=== PATIENT | female | born 1950 | race Caucasian/White ===

== ENCOUNTER 2017-07-21 11:56 | Emergency (ER) | payer BC, OTHER ==
--- NOTE | 2017-07-21 12:36 | ED Physician Documentation ---
PD HPI TRUNK INJURY - Stated complaint Stated Complaint: RIB PAIN, FALL - Chief complaint Chief Complaint: Trauma Ch/Bk - History obtained from History obtained from: Patient - History of Present Illness Location: Right chest. No: Right abdomen Type of injury: Fall (slipped and fell, striking right lateral ribs on a log. Pain locally since and unable to have deep breaths without pain still.) Timing - onset: How many days ago (2) Timing - duration: Days (2) Timing - details: Abrupt onset, Still present Quality: Pain, Spasm, Sharp, Other Improved by: No: Rest Worsened by: Moving, Palpating Associated symtptoms: No: Weakness, Numbness, Tingling, Swelling Contributing factors: No: Anticoagulated, Other injury Where injury occured: Home Recently seen: Not recently seen Review of Systems Constitutional: denies: Fever, Chills Nose: reports: Rhinorrhea / runny nose, Congestion Throat: denies: Sore throat Cardiac: reports: Chest pain / pressure. denies: Palpitations Respiratory: reports: Cough. 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 Cardiovascular: Angioplasty, Other Derm: Skin cancer surgery - Present Medications Home Medications: Ambulatory Orders Medication Instructions Recorded Confirmed Insulin Glargine,Hum.rec.anlog 90 units SQ DAILY 07/17/13 03/28/16 [Lantus] Losartan [Cozaar] 50 mg PO ONCE 07/17/13 03/28/16 hydroCHLOROthiazide 50 mg PO DAILY 07/17/13 03/28/16 [Hydrochlorothiazide] Aspirin [Adult Low Dose Aspirin EC] 81 mg PO DAILY 03/28/16 03/28/16 Atorvastatin [Lipitor] 40 mg PO DAILY 03/28/16 03/28/16 Carvedilol 25 mg PO DAILY 03/28/16 03/28/16 Benzonatate [Tessalon] 100 mg PO TID PRN #25 capsule 07/21/17 Cholecalciferol [Vitamin D3] 1 cap PO DAILY 07/21/17 07/21/17 Dexamethasone [Decadron] 4 mg PO DAILY #5 tablet 07/21/17 HYDROcod/ACETAM 5/325 [[place] 5/325] 1 tab PO Q6H PRN #20 tablet 07/21/17 Metformin HCl [Fortamet] 1 tab PO BID 07/21/17 07/21/17 Methocarbamol [Robaxin] 500 mg PO Q6H PRN #25 tablet 07/21/17 - Allergies Allergies/Adverse Reactions: Allergies Allergy/AdvReac Type Severity Reaction Status Date / Time No Known Drug Allergies Allergy Verified 07/21/17 12:04 - Social History Does the pt smoke?: No Smoking Status: Never smoker Does the pt drink ETOH?: No Does the pt have substance abuse?: No - Immunizations Immunizations are current?: Yes - POLST Patient has POLST: No PD ED PE NORMAL - Vitals Vital signs reviewed: Yes - General General: Alert and oriented X 3, No acute distress, Well developed/nourished - HEENT HEENT: Atraumatic - Neck Neck: Supple, no meningeal sign, No adenopathy - Cardiac Cardiac: RRR, No murmur - Respiratory Respiratory: Clear bilaterally, Other - Abdomen Abdomen: Soft, Non tender - Female Female : Deferred - Rectal Rectal: Deferred - Back Back: No CVA TTP, No spinal TTP - Derm Derm: Normal color, Warm and dry - Extremities Extremities: No deformity, No tenderness to palpate, Normal ROM s pain - Neuro Neuro: Alert and oriented X 3, orthodontic laboratory technician 2-12 intact, No motor deficit, No sensory deficit, Normal speech Eye Opening: Spontaneous Motor: Obeys Commands Verbal: Oriented GCS Score: 15 - Psych Psych: Normal mood Results - Vitals Vitals: Oxygen O2 Source Room air - Rads (name of study) right ribs with chest Radiology: Prelim report reviewed (no acute process. ) PD MEDICAL DECISION MAKING - ED course Complexity details: reviewed results, considered differential, d/w patient Departure - Departure Disposition: 01 Home, Self Care Clinical Impression: Contusion of chest wall Qualifiers: Encounter type: initial encounter Laterality: right Qualified Code(s): S20.211A - Contusion of right front wall of thorax, initial encounter Fall from slipping on ice Qualifiers: Encounter type: initial encounter Qualified Code(s): W00.9XXA - Unspecified fall due to ice and snow, initial encounter Upper respiratory infection Qualifiers: URI type: unspecified URI Qualified Code(s): J06.9 - Acute upper respiratory infection, unspecified Condition: Stable Record reviewed to determine appropriate education?: Yes Instructions: ED Upper Resp Infec No Abx Tx, ED Contusion Chest Wall Follow-Up: PABLO BURTON DO [Primary Care Provider] - Prescriptions: Benzonatate [Tessalon] 100 mg PO TID PRN #25 capsule PRN Reason: Cough Dexamethasone [Decadron] 4 mg PO DAILY #5 tablet HYDROcod/ACETAM 5/325 [[place] 5/325] 1 tab PO Q6H PRN #20 tablet PRN Reason: Pain Methocarbamol [Robaxin] 500 mg PO Q6H PRN #25 tablet PRN Reason: Spasms Comments: Activity as feeling able. To help with coughing, use Tessalon if needed for cough and Decadron daily for 5 days and see if that helps. For the chest wall pain from the fall, use ibuprofen to 3 times a day and add Tylenol or hydrocodone if needed. There may be some muscle spasming as well so methocarbamol for spasms. This should taper down and improve over the next several days to week. Follow-up with your primary care if not improving. Discharge Date/Time: 07/21/17 14:47
[2017-07-21] MEDS ORDERED: oxyCOD/ACETAMIN 5 MG/325 MG TABLET PO STA (12:49)
[2017-07-21] MEDS ORDERED: KETOROLAC 60 MG/2 ML VIAL IM STA (12:50)
[2017-07-21] MEDS ORDERED: DEXAMETHASONE 10 MG/ML VIAL PO STA (12:50)
--- NOTE | 2017-07-21 14:11 | XRAY Report ---
EXAM: RIGHT RIB RADIOGRAPHY EXAM DATE: 07/21/2017 02:02 PM. CLINICAL HISTORY: Fall to right ribs 2 days ago. Pain. COMPARISON: 1 view chest radiography 07/17/2013. TECHNIQUE: 1 view of the chest and 2 views of the ribs. FINDINGS: Bones: No fracture. Lungs: No focal consolidation. No pneumothorax. No pleural effusions. Mediastinum: Heart and mediastinal contours are unremarkable. Other: None. IMPRESSION: No radiographically apparent acute abnormality in the chest. [facility] Referring Provider Line: [phone] SITE ID: [id number]
[2017-07-21 14:46] VITALS: BP 140/67
== END 2017-07-21 14:47 | disposition home or self-care (01) ==
LOC: ED 11:56
DX: S20.211A Contusion of right front wall of thorax, initial encounter (principal); W00.0XXA Fall on same level due to ice and snow, initial encounter; Y92.009 Unspecified place in unspecified non-institutional (private) residence as the place of occurrence of the external cause; J06.9 Acute upper respiratory infection, unspecified; I10 Essential (primary) hypertension; E11.9 Type 2 diabetes mellitus without complications; Z79.4 Long term (current) use of insulin; K21.9 Gastro-esophageal reflux disease without esophagitis; I25.2 Old myocardial infarction; Z79.82 Long term (current) use of aspirin
CPT/HCPCS: 71101; 96372; 99283; A9270

== ENCOUNTER 2018-07-12 07:26 | Outpatient (CLI) | payer MEDICARE, OTHER ==
--- NOTE | 2018-07-12 13:49 | MRI Report ---
Reason: RADICULOPATHY,LUMBAR REGION Procedure Date: 07/12/2018 Accession Number: [id number] / [id number] Procedure: MRI - Lumbar Spine W/O CPT Code: FULL RESULT: MRI LUMBAR SPINE WITHOUT CONTRAST INDICATION: 67-year-old female with low back pain and right leg pain. TECHNIQUE: 1. Sagittal STIR, T1 and T2. 2. Axial T1 and T2 COMPARISON: None. FINDINGS: There appear to be 5 nonrib-bearing, lumbar type vertebrae. There is minimal retrolisthesis of L1 on L2 and L3 on L4. Alignment is otherwise unremarkable. There is absence of normal T2 signal from the disks at T11-T12, L4-L5 and L5-S1, confirming disk degeneration. The T12-L1 through L3-L4 disks appear relatively well hydrated. There is mild disk space narrowing at T11-T12, L3-L4 and L4-L5 with moderate to severe narrowing at L5-S1. Type II reactive marrow changes are identified in the vertebral endplates at L5-S1. Minor type I reactive marrow change is identified in the vertebral endplates at T11-T12 anteriorly. A few intraosseous hemangiomata are demonstrated. The marrow signal intensity is otherwise unremarkable. The conus terminates in appropriate fashion above the L1-L2 disk level. There is no abnormal thickening or lipomatous change of the filum. Axial images: T12-L1: Minimal disk bulge. No spinal canal or foraminal stenosis. L1-L2: Disk bulge. No spinal canal or foraminal stenosis. L2-L3: Very small intra/extraforaminal protrusions or extrusions are demonstrated bilaterally. No spinal canal or foraminal stenosis. L3-L4: Minor disk bulge with associated intraforaminal disk displacement. In addition, there is a small left intraforaminal protrusion. Suspect early degenerative facet arthrosis. No significant bony hypertrophy. Mild redundancy of the ligamenta flava. No spinal stenosis. Mild left foraminal stenosis. L4-L5: Circumferential disk bulge with associated minor intraforaminal disk displacement. In addition, there is a tiny posterocentral protrusion and a small right posterolateral protrusion. Mild redundancy of the ligamenta flava. Minimal mass effect on the ventral aspect of the thecal sac. No spinal stenosis. Mild foraminal narrowing. L5-S1: Circumferential disk bulge. Small central/left paracentral extrusion projecting posteriorly into the spinal canal for roughly 4.5 mm. Broad-based, intra/extraforaminal extrusions bilaterally. Degenerative facet arthrosis with associated moderate bony hypertrophy. Mild redundancy of the ligamenta flava. No spinal stenosis. Mild foraminal narrowing. The L5 nerve roots exit non-compressed. A mild to moderate amount of fatty atrophy is identified in the posterior paraspinal musculature. Incidentally noted is a roughly 3.35 cm rounded, T2 hyperintense/T1 hypointense mass arising from the anteromedial cortex of mid pole right kidney, consistent with a benign cortical cyst. The regional paraspinous soft tissues are otherwise unremarkable. IMPRESSION: 1. Degenerative disk and facet changes are demonstrated at multiple levels in the lumbar spine as described. 2. There is no significant associated spinal canal or foraminal stenosis. No evidence of neural impingement.
== END 2018-07-12 07:27 | disposition home or self-care (01) ==
LOC: DI 07:26
PROVIDERS: ATTEND Family Medicine
DX: M51.16 Intervertebral disc disorders with radiculopathy, lumbar region (principal); M51.17 Intervertebral disc disorders with radiculopathy, lumbosacral region; M47.9 Spondylosis, unspecified
CPT/HCPCS: 72148

== ENCOUNTER 2020-03-24 16:40 | Outpatient (CLI) | payer MEDICARE, OTHER ==
--- NOTE | 2020-03-24 17:11 | XRAY Report ---
PROCEDURE: Foot 3 View RT INDICATIONS: ACUTE PAIN AT THE HEAL AND BALL TECHNIQUE: 3 views of the foot were acquired. COMPARISON: None FINDINGS: Bones: Osteoarthritic changes are noted throughout right foot more prominent involving the TMT joints and first MTP joint. No fractures or dislocations. Well-defined plantar and dorsal calcaneal enthes ophytes are seen. Osteoarthritic changes also noted involving articulation between sesamoids and firs t metatarsal head. No suspicious bony lesions. Soft tissues: No tibiotalar joint effusion. Achilles tendon appears normal. IMPRESSION: Right foot osteoarthritic changes as above. No gross acute fracture or dislocation. Reviewed by: Enrique Ling MD on 03/24/2020 5:09 PM PDT Approved by: Enrique Ling MD on 03/24/2020 5:09 PM PDT Station ID: [id number]
== END 2020-03-24 16:41 | disposition home or self-care (01) ==
LOC: DI 16:40
PROVIDERS: ATTEND Family Medicine
DX: M19.071 Primary osteoarthritis, right ankle and foot (principal)

== ENCOUNTER 2021-01-19 09:08 | Outpatient (CLI) | payer MEDICARE, OTHER ==
--- NOTE | 2021-01-20 13:27 | Mammography Report ---
BILATERAL DIGITAL SCREENING MAMMOGRAM 3D/2D: 01/19/2021 CLINICAL: Routine screening. Comparison is made to exams dated: 02/04/2015 mammogram, 09/05/2007 mammogram, 07/19/2002 mammogram, an d 02/12/2001 mammogram - [facility]. The tissue of both breasts is predominantly fa tty. There is a cluster of fine calcifications in the right breast middle depth lateral region seen on the craniocaudal view only. This is increased in number. There is a new cluster of fine calcifications in the left breast middle depth medial region seen on t he craniocaudal view only. No other significant masses or calcifications are seen in either breast. IMPRESSION: INCOMPLETE: NEEDS ADDITIONAL IMAGING EVALUATION The cluster of fine calcifications in the right breast middle depth lateral region seen on the cranio caudal view only is indeterminate. Lateral magnification and magnification views are recommended. The new cluster of fine calcifications in the left breast middle depth medial region seen on the cran iocaudal view only is indeterminate. Magnification views are recommended. This exam was interpreted at Station ID: [id number]. NOTE: For mammograms, a report in lay terms will be sent to the patient. Approximately 15% of breast malignancies will not be visualized mammographically. In the management of a palpable breast mass, a negative mammogram must not discourage biopsy of a clinically suspicious lesion. Electronically Signed By: Luther Sandra M.D., jr/lauren:01/19/2021 10:12:12 ACR BI-RADS Category 0: Incomplete 3340F PARENCHYMAL PATTERN: (F) - The breast(s) demonstrate(s) diffuse fatty replacement. BI-RADS CATEGORY: (0) - 0 RECOMMENDATION: (ADDMAM) - Recommend additional mammographic views. [id number] Immediate follow-up LATERALITY: (B)
== END 2021-01-19 09:09 | disposition home or self-care (01) ==
LOC: DI 09:08
DX: Z12.31 Encounter for screening mammogram for malignant neoplasm of breast (principal); R92.1 Mammographic calcification found on diagnostic imaging of breast

== ENCOUNTER 2021-02-11 07:48 | Outpatient (CLI) | payer MEDICARE, OTHER ==
--- NOTE | 2021-02-14 10:20 | Mammography Report ---
BILATERAL DIGITAL DIAGNOSTIC MAMMOGRAM 3D/2D: 02/11/2021 CLINICAL: Patient returns for magnification views of microcalcifications in both breasts. Comparison is made to exams dated: 01/19/2021 mammogram, 02/04/2015 mammogram, 09/05/2007 mammogram, mammogram, and 02/12/2001 mammogram - [facility]. The tissue of both breast s is predominantly fatty. There are grouped fine calcifications in the right breast middle depth central to the nipple seen on the craniocaudal view only. There are grouped fine calcifications in the left breast middle depth medial region seen on the crani ocaudal view only. No other significant masses or calcifications are seen in either breast. IMPRESSION: PROBABLY BENIGN The grouped fine calcifications in the right breast middle depth central to the nipple seen on the cr aniocaudal view only are probably benign. A follow-up mammogram in 6 months is recommended. The grouped fine calcifications in the left breast middle depth medial region seen on the craniocauda l view only are probably benign. A follow-up mammogram in 6 months is recommended. A follow-up mammogram in 6 months is recommended to demonstrate stability. This exam was interpreted at Station ID: [id number]. NOTE: For mammograms, a report in lay terms will be sent to the patient. Approximately 15% of breast malignancies will not be visualized mammographically. In the management of a palpable breast mass, a negative mammogram must not discourage biopsy of a clinically suspicious lesion. Electronically Signed By: Luther Sandra M.D., jr/lauren:02/11/2021 08:43:30 ACR BI-RADS Category 3: Probably benign 3343F PARENCHYMAL PATTERN: (F) - The breast(s) demonstrate(s) diffuse fatty replacement. BI-RADS CATEGORY: (3) - 3 Mammogram [id number] 6 month follow-up LATERALITY: (B)
== END 2021-02-11 07:49 | disposition home or self-care (01) ==
LOC: DI 07:48
PROVIDERS: ATTEND Family Medicine
DX: R92.1 Mammographic calcification found on diagnostic imaging of breast (principal)

== ENCOUNTER 2021-04-19 07:14 | Outpatient (CLI) | payer MEDICARE, OTHER ==
--- NOTE | 2021-04-19 08:45 | MRI Report ---
PROCEDURE: Lumbar Spine W/O INDICATIONS: LUMBAR RADICULOPATHY TECHNIQUE: Noncontrast sagittal T1 spin echo and T2 fast echo, sagittal STIR, axial T1 and T2 fast spin echo thr ough the lumbar spine. Axial and oblique coronal T1 spin echo and STIR through the sacrum. In cases with scoliosis, additional coronal T2 fast spin echo may be performed. COMPARISON: None. FINDINGS: Alignment and Curvature: There is normal bony alignment. Bone Marrow: Multilevel endplate degenerative sclerosis and spurring. Diffuse facet arthropathy. No evidence of acute fracture. Severe L5-S1 disc height loss. Spinal Cord: Conus medullaris terminates at the L1 level. Visualized cord demonstrates normal signa l and size. Paraspinous Soft Tissues: No paravertebral masses. Presumed T2 hyperintense right renal cyst, techn ically nonspecific. Posterior dependent subcutaneous soft tissue edema seen at the level of L2-L4 T12-L1: Normal in appearance. L1-L2: Normal in appearance. L2-L3: Normal in appearance. L3-L4: No canal or definite lateral recess narrowing. Minimal bilateral foraminal narrowing. L4-L5: Mild canal narrowing. Partial effacement of the left and right lateral recesses with symmetr ic appearance. Mild bilateral foraminal stenoses. L5-S1: No high-grade canal narrowing. Partial effacement of the left and right lateral recesses wit h symmetric appearance. Moderate right foraminal stenosis, with questionable nerve root compression i n the cephalocaudad dimension. There is also moderate left foraminal stenosis also demonstrating poss ible slight nerve root compression in the cephalocaudad dimension. Sacrum: Visualized sacral plexus appears normal. IMPRESSION: Multilevel midlower lumbar spondylosis and facet disease as above. Moderate bilateral foraminal stenoses at L5-S1. Reviewed by: Leno Bee MD on 04/19/2021 8:44 AM PST Approved by: Leno Bee MD on 04/19/2021 8:44 AM PST Station ID: [id number]
== END 2021-04-19 07:15 | disposition home or self-care (01) ==
LOC: DI 07:14
PROVIDERS: ATTEND Family Medicine
DX: M47.816 Spondylosis without myelopathy or radiculopathy, lumbar region (principal); M47.817 Spondylosis without myelopathy or radiculopathy, lumbosacral region; M48.061 Spinal stenosis, lumbar region without neurogenic claudication; M48.07 Spinal stenosis, lumbosacral region

== ENCOUNTER 2021-06-06 11:42 | Emergency (ER) | payer MEDICARE, OTHER ==
[2021-06-06 13:23] LABS: BASOPHILS % (AUTO) 0.3 %; EOSINOPHILS % (AUTO) 2.8 %; HCT - HEMATOCRIT 39.6 % (37.0-47.0); HGB - HEMOGLOBIN 13.4 g/dL (12.0-16.0); LYMPHOCYTES % (AUTO) 33.6 %; MEAN CORPUSCULAR HEMOGLOBIN 29.6 pg (27.0-31.0); MEAN CORPUSCULAR HGB CONC 33.8 g/dL (32.0-36.0); MEAN CORPUSCULAR VOLUME 87.6 fL (81.0-99.0); MEAN PLATELET VOLUME 10.9 fL (7.9-10.8); MONOCYTES % (AUTO) 8.8 %; NEUTROPHILS % (AUTO) 54.2 %; PLT - PLATELET COUNT 183 10^3/uL (130-450); RED BLOOD COUNT 4.52 10^6/uL (4.20-5.40); RED CELL DISTRIBUTION WIDTH 12.6 % (12.0-15.0); WHITE BLOOD COUNT 5.8 x10^3/uL (4.8-10.8)
[2021-06-06 13:24] LABS: SLIDE REVIEW? Indicated
[2021-06-06 13:25] LABS: ABNORMAL LYMPHS % (MANUAL) 0 %
[2021-06-06 13:40] LABS: ALBUMIN 3.8 g/dL (3.2-5.5); BILIRUBIN,TOTAL 0.6 mg/dL (0.2-1.0); CALCIUM 9.2 mg/dL (8.5-10.3); CREATININE 1.1 mg/dL (0.4-1.0); POTASSIUM 4.1 mmol/L (3.5-5.0); TOTAL PROTEIN 7.7 g/dL (6.7-8.2)
[2021-06-06] MEDS ORDERED: SODIUM CHLORIDE 0.9% 1,000 ML IV STA ×2 (14:02→15:56)
[2021-06-06] MEDS ORDERED: cefTRIAXone 1 GM in SODIUM CHLORIDE 0.9% MINIBAG 100 ML IV STA (14:02)
--- NOTE | 2021-06-06 14:04 | ED Physician Documentation ---
PD HPI NVD - Stated complaint Stated Complaint: N/V/D WEAKNESS - Chief complaint Chief Complaint: Abd Pain - History obtained from History obtained from: Patient - History of Present Illness Timing - onset: How many days ago (3) Timing - duration: Days (3) Timing - details: Gradual onset, Still present Associated symptoms: Dizzy, Near syncope / syncope, Loss of appetite. No: Fever Contributing factors: Other (has uri with cough, foul taste in mouth and ear pressure) Improved by: Vomiting, BM Similar symptoms before: Diagnosis (dehydration) Recently seen: Not recently seen - Additonal information Additional information: Previously well 70-year-old female who is on insulin for diabetes has developed nausea vomiting diarrhea resulting in dizziness and lightheadedness. She feels weak. She also is having a cough productive of scant phlegm and a foul taste in her mouth as well as fullness to both ears. Review of Systems Constitutional: reports: Myalgias, Fatigue. denies: Fever Eyes: denies: Decreased vision Ears: reports: Ear pain Nose: reports: Rhinorrhea / runny nose, Congestion Throat: denies: Sore throat Cardiac: denies: Chest pain / pressure, Palpitations Respiratory: reports: Dyspnea, Cough GI: reports: Nausea, Vomiting, Diarrhea : denies: Dysuria, Frequency Skin: denies: Rash Musculoskeletal: denies: Neck pain, Back pain, Extremity pain PD PAST MEDICAL HISTORY - Past Medical History Cardiovascular: Hypertension, High cholesterol, [place] Respiratory: None Endocrine/Autoimmune: Type 2 diabetes GI: GERD : None Psych: None Musculoskeletal: None, Osteoarthritis Derm: None - Past Surgical History Past Surgical History: Yes General: Appendectomy Ortho: Carpal Tunnel surgery /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 Cardiovascular: Angioplasty, Other Derm: Skin cancer surgery - Present Medications Home Medications: Ambulatory Orders Medication Instructions Recorded Confirmed Insulin Glargine,Hum.rec.anlog 90 units SQ DAILY 07/17/13 03/28/16 [Lantus] Losartan [Cozaar] 50 mg PO ONCE 07/17/13 03/28/16 hydroCHLOROthiazide 50 mg PO DAILY 07/17/13 03/28/16 [Hydrochlorothiazide] Aspirin [Adult Low Dose Aspirin EC] 81 mg PO DAILY 03/28/16 03/28/16 Atorvastatin [Lipitor] 40 mg PO DAILY 03/28/16 03/28/16 Carvedilol 25 mg PO DAILY 03/28/16 03/28/16 Benzonatate [Tessalon] 100 mg PO TID PRN #25 capsule 07/21/17 Cholecalciferol [Vitamin D3] 1 cap PO DAILY 07/21/17 07/21/17 HYDROcod/ACETAM 5/325 [[place] 5/325] 1 tab PO Q6H PRN #20 tablet 07/21/17 Metformin HCl [Fortamet] 1 tab PO BID 07/21/17 07/21/17 dexAMETHasone [Decadron] 4 mg PO DAILY #5 tablet 07/21/17 methocarbamoL [Robaxin] 500 mg PO Q6H PRN #25 tablet 07/21/17 Amox/Clav 875/125 [Augmentin] 1 each PO Q12H #20 tablet 06/06/21 - Allergies Allergies/Adverse Reactions: Allergies Allergy/AdvReac Type Severity Reaction Status Date / Time No Known Drug Allergies Allergy Verified 06/06/21 12:34 - Social History Does the pt smoke?: No Smoking Status: Never smoker Does the pt drink ETOH?: No Does the pt have substance abuse?: No - Immunizations Immunizations are current?: Yes - POLST Patient has POLST: No PD ED PE NORMAL - Vitals Vital signs reviewed: Yes (Hypertensive with wide pulse pressure) - General General: Alert and oriented X 3, No acute distress, Well developed/nourished - HEENT HEENT: Atraumatic, PERRL, EOMI, Other (Both TMs are inflamed the right is worse than the left there is cerumen to the right this is removed for examination.) - Neck Neck: Supple, no meningeal sign, No bony TTP - Cardiac Cardiac: RRR, No murmur - Respiratory Respiratory: No respiratory distress, Clear bilaterally - Abdomen Abdomen: Soft, Non tender - Back Back: No CVA TTP, No spinal TTP - Derm Derm: Normal color, Warm and dry, No rash - Extremities Extremities: No deformity, No edema - Neuro Neuro: Alert and oriented X 3, compliance advisor 2-12 intact, No motor deficit, No sensory deficit, Normal speech Eye Opening: Spontaneous Motor: Obeys Commands Verbal: Oriented GCS Score: 15 - Psych Psych: Normal mood, Normal affect Results - Vitals Vitals: Vital Signs - 24 hr 06/06/21 06/06/21 06/06/21 12:29 13:42 15:00 Temperature 37.1 C Heart Rate 84 78 80 Respiratory 18 16 16 Rate Blood Pressure 161/63 H 180/66 H 139/62 H O2 Saturation 97 98 95 06/06/21 17:00 Temperature Heart Rate 78 Respiratory 16 Rate Blood Pressure 150/67 H O2 Saturation 96 Oxygen O2 Source Room air - Labs Labs: Laboratory Tests 06/06/21 06/06/21 06/06/21 13:19 13:19 13:40 WBC 5.8 RBC 4.52 Hgb 13.4 Hct 39.6 MCV 87.6 MCH 29.6 MCHC 33.8 RDW 12.6 Plt Count 183 MPV 10.9 H Neut # (Auto) Not Reportable Lymph # (Auto) Not Reportable Bay # (Auto) Not Reportable Eos # (Auto) Not Reportable Baso # (Auto) Not Reportable Absolute Nucleated RBC Not Reportable Total Counted 100 Band Neuts % (Manual) 5 Reactive Lymphs % (Man) 1 Abnorm Lymph % (Manual) 0 Nucleated RBC % Not Reportable Neutrophils # (Manual) 3.3 Lymphocytes # (Manual) 2.1 Monocytes # (Manual) 0.4 Eosinophils # (Manual) 0.0 Basophils # (Manual) 0.0 Differential Comment MANUAL DIFFERENTIAL Manual Slide Review Indicated WBC Morphology 2+ REACTIVE LYMPHS Sodium 132 L Potassium 4.1 Chloride 92 L Carbon Dioxide 27 Anion Gap 13.0 BUN 23 H Creatinine 1.1 H Estimated GFR (MDRD) 49 L Glucose 254 H POC Whole Bld Glucose Calcium 9.2 Total Bilirubin 0.6 AST 24 ALT 19 Alkaline Phosphatase 55 Total Protein 7.7 Albumin 3.8 Globulin 3.9 Albumin/Globulin Ratio 1.0 Lipase 21 L Urine Color Cancelled Urine Clarity Cancelled Urine pH Cancelled Ur Specific [place] Cancelled Urine Protein Cancelled Urine Glucose (UA) Cancelled Urine Ketones Cancelled Urine Occult Blood Cancelled Urine Nitrite Cancelled Urine Bilirubin Cancelled Urine Urobilinogen Cancelled Ur Leukocyte Esterase Cancelled Ur Microscopic Review Cancelled Urine Culture Comments Cancelled 06/06/21 06/06/21 13:40 16:38 WBC RBC Hgb Hct MCV MCH MCHC RDW Plt Count MPV Neut # (Auto) Lymph # (Auto) Bay # (Auto) Eos # (Auto) Baso # (Auto) Absolute Nucleated RBC Total Counted Band Neuts % (Manual) Reactive Lymphs % (Man) Abnorm Lymph % (Manual) Nucleated RBC % Neutrophils # (Manual) Lymphocytes # (Manual) Monocytes # (Manual) Eosinophils # (Manual) Basophils # (Manual) Differential Comment Manual Slide Review WBC Morphology Sodium Potassium Chloride Carbon Dioxide Anion Gap BUN Creatinine Estimated GFR (MDRD) Glucose POC Whole Bld Glucose 252 H 152 H Calcium Total Bilirubin AST ALT Alkaline Phosphatase Total Protein Albumin Globulin Albumin/Globulin Ratio Lipase Urine Color Urine Clarity Urine pH Ur Specific [place] Urine Protein Urine Glucose (UA) Urine Ketones Urine Occult Blood Urine Nitrite Urine Bilirubin Urine Urobilinogen Ur Leukocyte Esterase Ur Microscopic Review Urine Culture Comments Procedures - IVC sono (time) 1355 Bedside IVC sono: IVC measures (cm) (0.71), IVC collapsed c insp (cm) (complete), Dehydration (est 2-3 liter deficit) PD MEDICAL DECISION MAKING - ED course Complexity details: reviewed old records, reviewed results, re-evaluated patient, considered differential, d/w patient ED course: 70-year-old diabetic female with nausea vomiting and is dehydrated she is taking insulin as elevated blood sugar and has been vomiting. She is administered intravenous saline she has otitis on examination she is administered Rocephin as well. Departure - Departure Disposition: 01 Home, Self Care Clinical Impression: Dehydration Otitis media Qualifiers: Otitis media type: suppurative Chronicity: acute Laterality: bilateral Recurrence: not specified as recurrent Spontaneous tympanic membrane rupture: without spontaneous rupture Qualified Code(s): H66.003 - Acute suppurative otitis media without spontaneous rupture of ear drum, bilateral Condition: Stable Instructions: ED Dehydration, ED Otitis Media Acute Adult Follow-Up: PABLO BURTON DO [Primary Care Provider] - Prescriptions: Amox/Clav 875/125 [Augmentin] 1 each PO Q12H #20 tablet
[2021-06-06 14:14] LABS: BAND NEUTROPHILS % (MANUAL) 5 %; LYMPHOCYTES # (MANUAL) 2.1 10^3/uL (1.5-3.5); LYMPHOCYTES % (MANUAL) 35 %; MONOCYTES # (MANUAL) 0.4 10^3/uL (0.0-1.0); NEUTROPHILS # (MANUAL) 3.3 10^3/uL (1.5-6.6); REACTIVE LYMPHS % (MANUAL) 1 %
[2021-06-06 14:15] LABS: DIFFERENTIAL COMMENT MANUAL DIFFERENTIAL
[2021-06-06 14:16] LABS: WBC MORPHOLOGY (MULTIPLE) 2+ REACTIVE LYMPHS (NORMAL)
[2021-06-06 17:07] VITALS: BP 150/67
== END 2021-06-06 17:37 | disposition home or self-care (01) ==
LOC: ED 11:42
DX: E86.0 Dehydration (principal); H66.003 Acute suppurative otitis media without spontaneous rupture of ear drum, bilateral; H61.21 Impacted cerumen, right ear; E11.65 Type 2 diabetes mellitus with hyperglycemia; Z79.4 Long term (current) use of insulin; I10 Essential (primary) hypertension; Z79.82 Long term (current) use of aspirin
CPT/HCPCS: 36415; 80053; 81001; 81003; 83690; 85025; 87086; 96361; 96365; 99283

== ENCOUNTER 2021-06-09 12:23 | Emergency (ER) | payer MEDICARE, OTHER ==
[2021-06-09] MEDS ORDERED: SODIUM CHLORIDE 0.9% 1,000 ML IV STA (12:51)
[2021-06-09] MEDS ORDERED: ONDANSETRON 4 MG/2 ML VIAL IVP STA (12:51)
[2021-06-09 12:57] LABS: BASOPHILS % (AUTO) 0.2 %; EOSINOPHILS # (AUTO) 0.2 10^3/uL (0.0-0.7); EOSINOPHILS % (AUTO) 2.5 %; HCT - HEMATOCRIT 39.2 % (37.0-47.0); HGB - HEMOGLOBIN 13.3 g/dL (12.0-16.0); LYMPHOCYTES % (AUTO) 32.9 %; MEAN CORPUSCULAR HEMOGLOBIN 29.2 pg (27.0-31.0); MEAN CORPUSCULAR HGB CONC 33.9 g/dL (32.0-36.0); MEAN CORPUSCULAR VOLUME 86.2 fL (81.0-99.0); MEAN PLATELET VOLUME 11.1 fL (7.9-10.8); MONOCYTES # (AUTO) 0.4 10^3/uL (0.0-1.0); MONOCYTES % (AUTO) 6.9 %; NEUTROPHILS # (AUTO) 3.5 10^3/uL (1.5-6.6); NEUTROPHILS % (AUTO) 57.2 %; PLT - PLATELET COUNT 245 10^3/uL (130-450); RED BLOOD COUNT 4.55 10^6/uL (4.20-5.40); RED CELL DISTRIBUTION WIDTH 12.5 % (12.0-15.0); WHITE BLOOD COUNT 6.1 x10^3/uL (4.8-10.8)
--- NOTE | 2021-06-09 13:01 | ED Physician Documentation ---
History of Present Illness - Stated complaint Stated Complaint: NAUSEA AND WEAK - Chief complaint Chief Complaint: General - Additonal information Additional information: 70-year-old female return to the emergency department for evaluation of fatigue, persistent feeling of unwell nausea and vomiting. Seen 3 days ago for similar found to be dehydrated and repleted with fluids. Also found to have acute otitis media and was started on Augmentin. Despite this she generally is having persistent nausea and vomiting. She is denying any diarrhea, dysuria urgency or frequency. She has not had any fevers. No cough or congestion. She is denying chest pain or shortness of air. Past medical history is most significant for insulin-dependent diabetes mellitus as well as a history of hypertension and coronary artery disease status post s tenting in 2006. Doubly vaccinated for COVID-19 though not boosted. Denies sick contacts. Review of Systems Constitutional: reports: Fatigue. denies: Fever, Chills Eyes: reports: Reviewed and negative Ears: reports: Reviewed and negative Nose: reports: Reviewed and negative Throat: reports: Reviewed and negative Cardiac: denies: Chest pain / pressure, Palpitations Respiratory: denies: Dyspnea, Cough, Hemoptysis GI: reports: Nausea, Vomiting. denies: Abdominal Pain, Diarrhea : denies: Dysuria, Frequency, Hesitancy Skin: reports: Reviewed and negative Musculoskeletal: reports: Reviewed and negative Neurologic: reports: Generalized weakness, Other (denies dizziness). denies: Focal weakness, Numbness, Difficulty speaking, Near syncope, Seizure, Confused, Altered mental status PD PAST MEDICAL HISTORY - Past Medical History Cardiovascular: Hypertension, High cholesterol, PA Respiratory: None Endocrine/Autoimmune: Type 2 diabetes GI: GERD : None Psych: None Musculoskeletal: None, Osteoarthritis Derm: None - Past Surgical History Past Surgical History: Yes General: Appendectomy Ortho: Carpal Tunnel surgery /[employer]ODUCTION [employer]: Hysterectomy Cardiovascular: Angioplasty, Other Derm: Skin cancer surgery - Present Medications Home Medications: Ambulatory Orders Medication Instructions Recorded Confirmed Insulin Glargine,Hum.rec.anlog 90 units SQ DAILY 07/17/13 03/28/16 [Lantus] Losartan [Cozaar] 50 mg PO ONCE 07/17/13 03/28/16 hydroCHLOROthiazide 50 mg PO DAILY 07/17/13 03/28/16 [Hydrochlorothiazide] Aspirin [Adult Low Dose Aspirin EC] 81 mg PO DAILY 03/28/16 03/28/16 Atorvastatin [Lipitor] 40 mg PO DAILY 03/28/16 03/28/16 Carvedilol 25 mg PO DAILY 03/28/16 03/28/16 Benzonatate [Tessalon] 100 mg PO TID PRN #25 capsule 07/21/17 Cholecalciferol [Vitamin D3] 1 cap PO DAILY 07/21/17 07/21/17 HYDROcod/ACETAM 5/325 [[place] 5/325] 1 tab PO Q6H PRN #20 tablet 07/21/17 Metformin HCl [Fortamet] 1 tab PO BID 07/21/17 07/21/17 dexAMETHasone [Decadron] 4 mg PO DAILY #5 tablet 07/21/17 methocarbamoL [Robaxin] 500 mg PO Q6H PRN #25 tablet 07/21/17 Amox/Clav 875/125 [Augmentin] 1 each PO Q12H #20 tablet 06/06/21 - Allergies Allergies/Adverse Reactions: Allergies Allergy/AdvReac Type Severity Reaction Status Date / Time No Known Drug Allergies Allergy Verified 06/09/21 12:42 - Social History Does the pt smoke?: No Smoking Status: Never smoker Does the pt drink ETOH?: No Does the pt have substance abuse?: No - Immunizations Immunizations are current?: Yes - POLST Patient has POLST: No PD ED PE EXPANDED - General General: Alert, No acute distress, Well developed/nourished - Cardiac Cardiac: Regular Rate, Radial strong equal, Pedal strong equal, Cap refill < 2 sec. No: Murmur Present - Respiratory Respiratory: Clear to ausultation tom. No: Distress, Labored - Abdomen Abdomen: Normal Bowel sounds. No: Tender to palpation - Back Back: Normal exam, Normal ROM. No: Vertebral tenderness, Soft tissue tenderness - Derm Derm: Normal color, Warm and dry. No: Rash - Neuro Neuro: Alert and Oriented X 3, CNII-XII intact, Normal gait, Normal speech - GCS Eye Opening: Spontaneous Motor: Obeys Commands Verbal: Oriented Total: 15 Results - Vitals Vitals: Vital Signs - 24 hr 06/09/21 12:36 Temperature 36.1 C L Heart Rate 74 Respiratory 18 Rate Blood Pressure 134/64 H O2 Saturation 99 Oxygen O2 Source Room air - EKG (time done) 1313 Rate: Rate (enter#) (78) Rhythm: NSR [place]: Normal Intervals: Normal [place] QRS: Normal Ischemia: Normal ST segments Compare to prior EKG: Unchanged from prior EKG Computer interpretation: Agree with computer - Labs Labs: Laboratory Tests 06/09/21 06/09/21 06/09/21 12:51 12:51 12:51 WBC 6.1 RBC 4.55 Hgb 13.3 Hct 39.2 MCV 86.2 MCH 29.2 MCHC 33.9 RDW 12.5 Plt Count 245 MPV 11.1 H Neut # (Auto) 3.5 Lymph # (Auto) 2.0 [place] # (Auto) 0.4 Eos # (Auto) 0.2 Baso # (Auto) 0.0 Absolute Nucleated RBC 0.00 Nucleated RBC % 0.0 Sodium 134 L Potassium 4.1 Chloride 94 L Carbon Dioxide 27 Anion Gap 13.0 BUN 14 Creatinine 1.0 Estimated GFR (MDRD) 55 L Glucose 144 H Calcium 9.1 Total Bilirubin 0.6 AST 29 ALT 18 Alkaline Phosphatase 52 Troponin I High Sens 13.8 Total Protein 7.8 Albumin 3.4 Globulin 4.4 H Albumin/Globulin Ratio 0.8 L Lipase 22
[2021-06-09 13:15] LABS: ALBUMIN 3.4 g/dL (3.2-5.5); ALBUMIN/GLOBULIN RATIO 0.8 (1.0-2.2); BILIRUBIN,TOTAL 0.6 mg/dL (0.2-1.0); CALCIUM 9.1 mg/dL (8.5-10.3); POTASSIUM 4.1 mmol/L (3.5-5.0); TOTAL PROTEIN 7.8 g/dL (6.7-8.2)
[2021-06-09 14:48] LABS: BILIRUBIN,URINE NEGATIVE (NEGATIVE); GLUCOSE, URINE (UA) NEGATIVE (NEGATIVE); KETONES,URINE (UA) NEGATIVE (NEGATIVE); LEUKOCYTE ESTERASE, URINE NEGATIVE (NEGATIVE); NITRITE,URINE NEGATIVE (NEGATIVE); OCCULT BLOOD,URINE NEGATIVE (NEGATIVE); PH,URINE 6.5 PH (5.0-7.5); PROTEIN,URINE NEGATIVE (NEGATIVE); UROBILINOGEN,URINE 0.2 (NORMAL) E.U./dL (NORMAL)
[2021-06-09 15:07] LABS: CLARITY,URINE CLEAR (CLEAR)
[2021-06-09 15:46] VITALS: BP 153/126
== END 2021-06-09 15:45 | disposition home or self-care (01) ==
LOC: ED 12:23
DX: R11.2 Nausea with vomiting, unspecified (principal); E11.9 Type 2 diabetes mellitus without complications; Z79.4 Long term (current) use of insulin; I10 Essential (primary) hypertension
CPT/HCPCS: 36415; 80053; 81003; 83690; 84484; 85025; 93005; 96374; 99283; 99284; U0004; 81001; 87086

== ENCOUNTER 2022-12-04 09:48 | Outpatient (CLI) | payer MEDICARE, OTHER ==
--- NOTE | 2022-12-04 17:38 | DEXA Report ---
PROCEDURE: Dexa Spine and/or Hip INDICATIONS: OSTEOPOROSIS TECHNIQUE: Dual energy x-ray absorptiometry (DXA) was performed on a [employer] System. Regions measur ed are the AP Spine, femoral neck, and if needed forearm. COMPARISON: None FINDINGS: Lumbar Spine: Bone Mineral Density 1.149 g/cm/cm,T score -0.3. Left Femoral Neck: Bone Mineral Density 0.826 g/cm/cm, T score -1.5. Left Hip: Bone Mineral Density 0.866 g/cm/cm,T score -1.1. (T score greater or equal to -1.0: NORMAL) (T score from -1.1 to -2.4: OSTEOPENIA) (T score less than or equal to -2.5 to: OSTEOPOROSIS) Impression: By WHO criteria, this patient has low bone density (osteopenia) of the hip. Patients with diagnosis of osteoporosis or osteopenia should have regular bone mineral density assess ment. For those eligible for Medicare, routine testing is allowed once every 2 years. Testing frequ ency can be increased for patients who have rapidly progressing disease or for those who are receivin g medical therapy to restore bone mass. Reviewed by: Chaya Ricketts MD on 12/04/2022 5:37 PM PDT Approved by: Chaya Ricketts MD on 12/04/2022 5:37 PM PDT Station ID: [id number]
== END 2022-12-04 09:49 | disposition home or self-care (01) ==
LOC: DI 09:48
PROVIDERS: ATTEND Family Medicine
DX: M85.89 Other specified disorders of bone density and structure, multiple sites (principal); Z78.0 Asymptomatic menopausal state; Z82.62 Family history of osteoporosis